=== PATIENT | female | born 1975 | race Two or more races ===

== ENCOUNTER 2020-06-08 20:03 | Emergency (ER) | payer BC ==
[~2020-06-08] VITALS: Ht 157.5 cm; Wt 61.4 kg
[2020-06-08 20:44] VITALS: BP 128/78
[2020-06-08] MEDS ORDERED: LIDO20SO16 PO (20:59)
[2020-06-08] MEDS ORDERED: PENI250T2 PO (20:59)
[2020-06-08] MEDS ORDERED: LIDO20SO16 MM (21:15)
== END 2020-06-08 22:42 | disposition home or self-care (01) ==
LOC: ER 20:04
DX: K08.89 Other specified disorders of teeth and supporting structures (principal); Z79.899 Other long term (current) drug therapy; Z79.2 Long term (current) use of antibiotics
CPT/HCPCS: 99283